=== PATIENT | female | born 1970 | race Asian ===

== ENCOUNTER 2018-02-21 12:34 | Observation (INO) | payer OTHER ==
--- NOTE | 2018-02-21 13:07 | EDPHY ---
H & P Time Seen by Provider: 02/21/18 12:50 HPI/ROS: Chief complaint. Chest pain HPI. Patient is 48-year-old female presents emergency department with complaint of left anterior chest pain that started at 8:30 a.m. This morning. She was getting ready for the day at onset. She describes it as pressure and radiates to left arm and back. Slight nausea. No shortness of breath. No fever cough. Her discomfort is worse with exertion but not deep breathing or movement. No fever cough. No unusual leg pain or swelling. No known history of heart or lung problems. No similar symptoms previously ROS 10 systems were reviewed and negative with the exception of the elements mentioned in the history of present illness Past Medical/Surgical History: Tubal ligation, IBS, anxiety, UTI, tachycardia with Family history shows no cardiac problems and siblings or parents. Uncle with heart problems Social History: , nonsmoker, no alcohol Smoking Status: Former smoker Physical Exam: General Appearance: Alert well-developed female mild distress vital signs are stable Eyes: Pupils equal and round no pallor or injection. ENT, Mouth: Mucous membranes are moist. Respiratory: There are no retractions, lungs are clear to auscultation. Cardiovascular: Regular rate and rhythm. Gastrointestinal: Abdomen is soft and nontender, no masses, bowel sounds normal. Neurological: Awake and alert, sensory and motor exams grossly normal. Skin: Warm and dry, no rashes. Musculoskeletal: Neck is supple nontender. Extremities symmetrical, full range of motion. Psychiatric: Patient is oriented X 3, there is no agitation. Constitutional: Initial Vital Signs Temperature (C) 36.7 C 02/21/18 12:39 Heart Rate 93 02/21/18 12:39 Respiratory Rate 18 02/21/18 12:39 Blood Pressure 130/89 H 02/21/18 12:39 O2 Sat (%) 95 02/21/18 12:39 O2 Delivery Mode Room Air Allergies/Adverse Reactions: amoxicillin trihydrate [From Augmentin] Allergy (Unknown, Verified 02/21/18 12: 38) cephalexin monohydrate [From Keflex] Allergy (Verified 07/03/15 11:38) potassium clavulanate [From Augmentin] Allergy (Verified 07/03/15 11:38) Home Medications: Medication Instructions Recorded Zolpidem Tartrate [Ambien 5MG (*)] 5 mg PO HS 02/21/18 buPROPion [Wellbutrin 75mg (*)] 75 mg PO 02/21/18 Medical Decision Making - Diagnostics EKG Interpretation: EKG interpreted by me shows normal sinus rhythm normal interval. Left axis deviation. QRS otherwise normal. T-wave inversion or flattening in anterior the leads. No significant ST elevation or depression. Rate is 93 No previous EKGs for comparison Imaging Results: Imaging Impressions Chest X-Ray 02/21/18 13:06 Impression: Clear lungs. Negative portable chest. Chest/Thorax CTA 02/21/18 13:45 Impression: 1. No acute central or segmental pulmonary embolus. 2. There is a 1.8 mm right apical nodule, likely benign, but if patient has increased risk of lung malignancy, would consider 12 month follow-up CT. Findings and recommendations discussed with ALEX GARZON at 1419 hour, 2017. Procedures: IV normal saline, monitor ED Course/Re-evaluation: Re-evaluation at 1:45 p.m. Patient is stable. She continues to have left anterior chest discomfort. Patient and and I discussed laboratory EKG chest x-ray evaluation. We discussed elevated D-dimer and recommendation for chest CT. She expresses understanding and agreement Patient is given a L of normal saline and nitroglycerin sublingually No change in discomfort with the nitroglycerin Patient, her , and I discussed treatment plan including recommendation for admission. They expressed understanding and agreement I consulted discussed the case with Dr. Betts, hospitalist, who agrees to the admission Differential Diagnosis: Heart score--history-highly suspicious-2, EKG nonspecific repolarization disturbance -1, age-1, risk factors 0, troponin 0. Total-4 Patient has no significant risk factors but tells a suspicious story. EKG shows the T-wave changes anterior lateral leads without previous EKG for comparison. - Data Points Laboratory Results: Laboratory Results 02/21/18 12:45 02/21/18 12:45 02/21/18 02/21/18 02/21/18 12:58 12:45 12:45 WBC RBC Hgb Hct MCV MCH MCHC RDW Plt Count MPV Neut % (Auto) Lymph % (Auto) [place] % (Auto) Eos % (Auto) Baso % (Auto) Nucleat RBC Rel Count Absolute Neuts (auto) Absolute Lymphs (auto) Absolute Monos (auto) Absolute Eos (auto) Absolute Basos (auto) Absolute Nucleated RBC Immature Gran % Immature Gran # D-Dimer 0.78 ug/mLFEU H ug/mLFEU (0.00-0.50) Sodium 137 mEq/L mEq/L (135-145) Potassium 4.4 mEq/L mEq/L (3.5-5.2) Chloride 104 mEq/L mEq/L (97-110) Carbon Dioxide 22 mEq/l mEq/l (22-31) Anion Gap 11 mEq/L mEq/L (6-14) BUN 18 mg/dL mg/dL (7-23) Creatinine 0.7 mg/dL mg/dL (0.6-1.0) Estimated GFR > 60 Glucose 116 mg/dL H mg/dL (70-100) Calcium 9.1 mg/dL mg/dL (8.5-10.4) POC Troponin I 0.01 ng/mL ng/mL (0.00-0.08) 02/21/18 12:45 WBC 10.68 10^3/uL H 10^3/uL (3.80-9.50) RBC 4.40 10^6/uL 10^6/uL (4.18-5.33) Hgb 13.8 g/dL g/dL (12.6-16.3) Hct 39.2 % % (38.0-47.0) MCV 89.1 fL fL (81.5-99.8) MCH 31.4 pg pg (27.9-34.1) MCHC 35.2 g/dL g/dL (32.4-36.7) RDW 11.9 % % (11.5-15.2) Plt Count 366 10^3/uL 10^3/uL (150-400) MPV 8.8 fL fL (8.7-11.7) Neut % (Auto) 61.0 % % (39.3-74.2) Lymph % (Auto) 31.1 % % (15.0-45.0) [place] % (Auto) 4.8 % % (4.5-13.0) Eos % (Auto) 2.0 % % (0.6-7.6) Baso % (Auto) 0.8 % % (0.3-1.7) Nucleat RBC Rel Count 0.0 % % (0.0-0.2) Absolute Neuts (auto) 6.52 10^3/uL H 10^3/uL (1.70-6.50) Absolute Lymphs (auto) 3.32 10^3/uL H 10^3/uL (1.00-3.00) Absolute Monos (auto) 0.51 10^3/uL 10^3/uL (0.30-0.80) Absolute Eos (auto) 0.21 10^3/uL 10^3/uL (0.03-0.40) Absolute Basos (auto) 0.09 10^3/uL 10^3/uL (0.02-0.10) Absolute Nucleated RBC 0.00 10^3/uL 10^3/uL (0-0.01) Immature Gran % 0.3 % % (0.0-1.1) Immature Gran # 0.03 10^3/uL 10^3/uL (0.00-0.10) D-Dimer Sodium Potassium Chloride Carbon Dioxide Anion Gap BUN Creatinine Estimated GFR Glucose Calcium POC Troponin I Medications Given: Nitroglycerin (Nitrostat) 0.4 mg SL Q5M PRN PRN Reason: Chest Pain Last Admin: 02/21/18 14:14 Dose: 0.4 mg Discontinued Medications Sodium Chloride (Ns) 1,000 mls @ 0 mls/hr IV EDNOW ONE; Wide Open PRN Reason: Protocol Stop: 02/21/18 13:51 Last Admin: 02/21/18 14:14 Dose: 1,000 mls Point of Care Test Results: Chemistry 02/21/18 12:58 POC Troponin I 0.01 ng/mL ng/mL (0.00-0.08) Departure - Departure Disposition: [facility] Inpatient Acute Clinical Impression: Chest pain Qualifiers: Chest pain type: unspecified Qualified Code(s): R07.9 - Chest pain, unspecified Condition: Good Referrals: Mariaelena Chandra MD [Primary Care Provider] - As per Instructions
[2018-02-21 13:12] LABS: PLATELET COUNT 366 10^3/uL (150-400)
--- NOTE | 2018-02-21 13:17 | CPEKG ---
Test Reason : OPEN Blood Pressure : / mmHG Vent. Rate : 093 BPM Atrial Rate : 093 BPM P-R Int : 171 ms QRS Dur : 083 ms QT Int : 366 ms P-R-T Axes : 023 -02 019 degrees QTc Int : 456 ms Sinus rhythm Low voltage, precordial leads Borderline T abnormalities, anterior leads Confirmed by Micheal Cooper ([id number]) on 02/21/2018 1:16:19 PM Referred By: Confirmed By:Micheal Cooper
[2018-02-21] MEDS ORDERED: NS 1,000 ML IV ONE (13:50)
[2018-02-21] MEDS ORDERED: IOPAMIDOL (ISOVUE 370) 100 ML BTL IV ONE (13:53)
[2018-02-21] MEDS: NITROGLYCERIN 0.4 MG BTL SL PRN ×3 (14:14→16:34)
[2018-02-21] MEDS ORDERED: ONDANSETRON DISINTEGRATING 4 MG TAB PO PRN (15:11)
[2018-02-21] MEDS ORDERED: oxyCODONE IR 5 MG TAB PO PRN (15:11)
[2018-02-21] MEDS ORDERED: ACETAMINOPHEN 325 MG TAB PO PRN (15:11)
[2018-02-21] MEDS ORDERED: ONDANSETRON 4 MG/2 ML VIAL IVP PRN (15:11)
--- NOTE | 2018-02-21 16:01 | PDGENHP ---
History and Physical - Chief Complaint Chest pain - History of Present Illness 48 y/o female presents with persistent left sided anterior chest pain that radiates to left arm and posterior scapula. Onset was this morning around 8: 30am when she was getting ready for the day. This is the first time she has experienced chest pain persistence. She admits that she has experienced similar chest pain but it quickly resolves on its own. Nothing seems to alleviate her chest pain and activity ( i.e. 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 Rates the pain 5/10. She reports her father needed a stent placed in the past and has hyperlipidemia. Denies SONG, vision changes, nausea, vomiting or SOB. EKG reveals T wave flattening. She received one dose of nitroglycerin in the ED with no resolution of her pain. She is being admitted for further diagnostic work-up and monitoring. Past Medical/Surgical History 1. IBS 2. Anxiety 3. UTIs (last one was September 2017) 4. Reflux (takes Zantac) 5. Tachycardia with Social 1. , lives in [place] 2. 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 Former smoker, denies current tobacco use. Drinks 1-2 times per week and 2- 4 wine glasses per episode. Smokes cannabis 4x/year. 4. Recently returned from vacation in [place]. Currently stressed at work and is an "emotional eater" consisting of ice cream and cheese. Vital Signs 115/85 88 HR 16 Respirations 36.7c 93% RA History Information - Allergies/Home Medication List Allergies/Adverse Reactions: amoxicillin trihydrate [From Augmentin] Allergy (Unknown, Verified 02/21/18 12: 38) cephalexin monohydrate [From Keflex] Allergy (Verified 07/03/15 11:38) potassium clavulanate [From Augmentin] Allergy (Verified 07/03/15 11:38) Home Medications: Bupropion HCl [Wellbutrin Xl] 300 mg PO DAILY 02/21/18 [Last Taken 02/21/18 08: 00] Zolpidem Tartrate 10 mg PO HS 02/21/18 [Last Taken 02/20/18 21:00] I have personally reviewed and updated: family history, medical history, social history, surgical history Past Medical History: See HPI list - Surgical History Additional surgical history: See HPI list - Family History Positive for: CAD, father with history of CAD younger than 55 - Social History Smoking Status: Former smoker Alcohol Use: Occasionally Drug Use: Marijuana Review of Systems Review of Systems: ROS: 10pt was reviewed & negative except for what was stated in HPI & below Constitutional: Reports: no symptoms EENMT: Reports: no symptoms Cardiac: Reports: chest pain Respiratory: Reports: no symptoms Gastrointestinal: Reports: no symptoms Genitourinary: Reports: no symptoms Muscolosketal: Reports: back pain (Left posterior scapula) Skin: Reports: no symptoms Neurological: Reports: anxiety Hematologic/Lymphatic: Reports: no symptoms Immunologic/Allergy: Reports: other (See allergy list) Physical Exam Physical Exam: Lab data and imaging reviewed EKG: see HPI list CXR: no acute processes Chest/Thorax CTA: no PE. Noted apical nodule - if malignancy in history, recommends CT f/u in 12 months. WBC: 10.68 RBC: 4.40 Hgb/Hct: 13.8/39.2 D-Dimer: 0.78 Trop: 0.01 Temp Pulse Resp BP Pulse Ox 36.7 C 82 18 122/105 H 95 02/21/18 12:39 02/21/18 15:50 02/21/18 15:50 02/21/18 15:50 02/21/18 15:50 O2 (L/minute) 2 Constitutional: no apparent distress, appears nourished, not in pain Eyes: PERRL, anicteric sclera, EOMI Ears, Nose, Mouth, Throat: moist mucous membranes, hearing normal, ears appear normal, no oral mucosal ulcers Cardiovascular: regular rate and rhythym, no murmur, rub, or gallop, No edema Peripheral Pulses: 2+: dorsalis-pedis (R) (Radial 2+), dorsalis-pedis (L) ( Radial 2+) Respiratory: no respiratory distress, no rales or rhonchi, clear to auscultation Gastrointestinal: normoactive bowel sounds, soft, non-tender abdomen, no palpable masses Genitourinary: no bladder fullness, no bladder tenderness Skin: warm, normal color, no rashes or abrasions, no fluctuance, no induration, No mottled Musculoskeletal: full muscle strength, no muscle tenderness, normal joint ROM, no joint effusions Neurologic: AAOx3, sensation intact bilaterally, CN II-XII Intact Psychiatric: interacting appropriately, not anxious, not encephalopathic, thought process linear Lymph, Heme, Immunologic: no cervical LAD, no supraclavicular LAD Lab Data & Imaging Review 02/21/18 12:45 02/21/18 12:45 WBC 10.68 10^3/uL (3.80-9.50) H 02/21/18 12:45 RBC 4.40 10^6/uL (4.18-5.33) 02/21/18 12:45 Hgb 13.8 g/dL (12.6-16.3) 02/21/18 12:45 Hct 39.2 % (38.0-47.0) 02/21/18 12:45 MCV 89.1 fL (81.5-99.8) 02/21/18 12:45 MCH 31.4 pg (27.9-34.1) 02/21/18 12:45 MCHC 35.2 g/dL (32.4-36.7) 02/21/18 12:45 RDW 11.9 % (11.5-15.2) 02/21/18 12:45 Plt Count 366 10^3/uL (150-400) 02/21/18 12:45 MPV 8.8 fL (8.7-11.7) 02/21/18 12:45 Neut % (Auto) 61.0 % (39.3-74.2) 02/21/18 12:45 Lymph % (Auto) 31.1 % (15.0-45.0) 02/21/18 12:45 [place] % (Auto) 4.8 % (4.5-13.0) 02/21/18 12:45 Eos % (Auto) 2.0 % (0.6-7.6) 02/21/18 12:45 Baso % (Auto) 0.8 % (0.3-1.7) 02/21/18 12:45 Nucleat RBC Rel Count 0.0 % (0.0-0.2) 02/21/18 12:45 Absolute Neuts (auto) 6.52 10^3/uL (1.70-6.50) H 02/21/18 12:45 Absolute Lymphs (auto) 3.32 10^3/uL (1.00-3.00) H 02/21/18 12:45 Absolute Monos (auto) 0.51 10^3/uL (0.30-0.80) 02/21/18 12:45 Absolute Eos (auto) 0.21 10^3/uL (0.03-0.40) 02/21/18 12:45 Absolute Basos (auto) 0.09 10^3/uL (0.02-0.10) 02/21/18 12:45 Absolute Nucleated RBC 0.00 10^3/uL (0-0.01) 02/21/18 12:45 Immature Gran % 0.3 % (0.0-1.1) 02/21/18 12:45 Immature Gran # 0.03 10^3/uL (0.00-0.10) 02/21/18 12:45 D-Dimer 0.78 ug/mLFEU (0.00-0.50) H 02/21/18 12:45 Sodium 137 mEq/L (135-145) 02/21/18 12:45 Potassium 4.4 mEq/L (3.5-5.2) 02/21/18 12:45 Chloride 104 mEq/L (97-110) 02/21/18 12:45 Carbon Dioxide 22 mEq/l (22-31) 02/21/18 12:45 Anion Gap 11 mEq/L (6-14) 02/21/18 12:45 BUN 18 mg/dL (7-23) 02/21/18 12:45 Creatinine 0.7 mg/dL (0.6-1.0) 02/21/18 12:45 Estimated GFR > 60 02/21/18 12:45 Glucose 116 mg/dL (70-100) H 02/21/18 12:45 Calcium 9.1 mg/dL (8.5-10.4) 02/21/18 12:45 POC Troponin I 0.01 ng/mL (0.00-0.08) 02/21/18 12:58 Assessment & Plan Plan: 48 y/o female presents with acute chest pain that radiates to her left arm and left sided scapula. Heart score is 4. Concern for ACS. Pain unrelieved by nitro and morphine. -Initiated chest pain protocol including: Cycle trops, EKGs -CBC/CMP tomorrow -Chemical stress test tomorrow; unable for exercise stress test d/t "very bad bunions" on both of her feet -Lipid panel tomorrow; considering starting atorvastatin tomorrow -Cont tele/pulse ox -Apical pulmonary nodule - educated pt to f/u in 12 months outpatient for repeat CT -Anxiety: may continue wellbutrin -May continue Ambien Diet: Regular VTE ppx: SCDs Code: Full Dispo: Admit to obs
[2018-02-21] MEDS ORDERED: ZOLPIDEM TARTRATE 5 MG TAB PO SCH (21:00)
--- NOTE | 2018-02-21 21:32 | GHP ---
DATE OF ADMISSION: 02/21/2018 CHIEF COMPLAINT: Chest pain. HISTORY OF PRESENT ILLNESS: Ms. Phelps is a pleasant, 48-year-old female with a past medical history of depression who presented to the [facility] Room with left-sided chest pain with radiation to her back. She was administered nitroglycerin in the emergency room without any ma karla improvement of her symptoms. Her initial troponin was negative. There was concern about her ECG showing T-wave flattening in the anterior leads, but there was no baseline available for comparison. Her D-dimer was mildly elevated at 0.78, so she had a CT angiography of her chest performed, which did not show any evidence of a pulmonary embolism. She is a nonsmoker. Her father did have coronary artery disease under the age of 55. For past medical history, past surgical history, medications, a llergies, family history, social history, and review of systems, please refer to admission H and P, a lso dictated by Mattie Branch. PHYSICAL EXAM: VITAL SIGNS: The patient was afebrile. Blood pressure 115/85, heart rate 82, respir ations 16, saturating 93% on room air. GENERAL: Patient appears comfortable. She is awake, alert, conversant, in no acute distress. She does not appear anxious. HEENT: Extraocular movements intact . No scleral icterus. NECK: Supple. No adenopathy. No thyroid enlargement noted. CHEST: Clear to auscultation with normal respiratory effort. HEART: Regular rate and rhythm. No murmurs appreci ated. ABDOMEN: Soft, nontender, nondistended. EXTREMITIES: No significant pitting edema or calf p ain. NEUROLOGIC: Cranial nerves 2-12 intact with 5/5 strength in extremities. LABS: White blood cell count is 10, hemoglobin 13, platelets 366. Sodium 137, potassium 4.4, chlori de 104, bicarb 22, BUN 18, creatinine 0.7, glucose 116. D-dimer 0.78. Troponin 0.01. IMAGING: Chest x-ray had no acute findings. CT of the chest without any evidence of pulmonary embol ism. ASSESSMENT AND PLAN: Chest pain has been nonresponsive to nitroglycerin and no significant relief wi th morphine. Her nurse did mention to me that when she was changing positions, it seemed to exacerba te the pain, so possibly a musculoskeletal component to it. Nonetheless, the plan overnight will be to trend troponins and attempt exercise stress testing in the morning. /[id number]/MODL
[2018-02-21] MEDS: HYDROmorphONE/DILAUDID 1 MG/ML INJ IVP PRN (23:55)
[2018-02-22 04:37] LABS: PLATELET COUNT 325 10^3/uL (150-400)
[2018-02-22 07:25] VITALS: BP 111/74
[2018-02-22] MEDS ORDERED: buPROPion XL 150 MG TAB PO SCH (09:00)
[2018-02-22] MEDS: HYDROmorphONE/DILAUDID 1 MG/ML INJ IVP PRN (10:22)
[2018-02-22] MEDS ORDERED: REGADENOSON 0.4 MG/5 ML SYR IVP ONE (13:19)
--- NOTE | 2018-02-22 14:54 | PDDCSUM ---
Discharge Summary Discharge Summary: Date of Admission: 02/21/2018 Date of Discharge: 02/22/2018 Consults: N/A Procedures: MPS F/U: PCP Hospital Course: Kathleen Phelps is a 48 yo F who presents to [facility] for L sided chest pain, described as pressure like, radiating down L arm. She was admitted overnight for observation with serial Troponins which were within normal limits and EKG that showed nonspecific T wave changes. Given patient's symptoms, nonspecific EKG changes, and family hx of heart disease, MPS was performed which was negative for ischemic changes. Of note, patient had CTA performed due to elevated D-Dimer on admission which showed a 1.8 mm R apical lung nodule that should be followed with repeat CT in 12 months. Time spent on discharge was >35 minutes with >50% of time spent on patient education and counseling.
--- NOTE | 2018-02-22 15:35 | ASDISCHSUM ---
Discharge Information Plan Status:Home with No Needs Medically Cleared to Leave:02/21/2018 Discharge Date:02/21/2018 CM D/C Disposition:Home, Routine, Self-Care ADT D/C Disposition: Projected Discharge Date:02/21/2018 Transportation at D/C:Family Discharge Delay Reason: Follow-Up Date:02/21/2018 Discharge Slot: Final Diagnosis: Placement Information Patient Contact Information Contact Name:ANIKET Relationship: Address:[address] [place] [address] City:[place] Alternate Phone: State/Zip Code:[place] [address] Email: Financial Information Financial Class:BC Primary [facility] Desc[facility] Primary Plan Number:[id number] Secondary Plan Desc: Secondary Plan Number: Assessment Information LACE LACE Length of stay for Answers: 1 day current admission Acuity / Level of Answers: No Care: Did the patient have an inpatient admission? Comorbidities - select Answers: Other Notes: IBS, UTIs, reflux all that apply # of Emergency department Answers: 1-2 visits in the last 6 months Social determinants Answers: History of substance abuse (ETOH, street drugs, prescription drugs, etc.) Mental health diagnosis (anxiety, depression, pers onality disorders, etc.) Score: 9 Date Signed: 02/22/2018 03:35 PM Electronically Signed By:Lisette Jules RN Intervention Information
--- NOTE | 2018-02-23 01:26 | CPR ---
DATE OF PROCEDURE: 02/22/2018 INDICATIONS: The patient is 48 years old. She presents to the hospital with symptoms of left-sided chest discomfort with some features that suggest ischemia. Thus far she has ruled out for myocardial infarction. PROCEDURE: Lexiscan stress test. TECHNIQUE: Following informed consent and in the fasting state, the patient was administered Lexisca n per protocol. The baseline electrocardiogram was noted to demonstrate normal sinus rhythm. The pa tient was monitored continuously during the process with blood pressures taken every minute. Baselin e heart rate was 71 with a blood pressure 122/80 and saturations 99%. During the time frame, the pat ient remained hemodynamically stable. At the end of the 4-minute protocol, the patient's heart rate was 95 with a blood pressure 122/84, room air saturation 99%. There were no electrocardiographic karri nges. Myocardial perfusion imaging will be dictated separately. /[id number]/MODL
== END 2018-02-22 15:48 | disposition home or self-care (01) ==
LOC: INTOOBSV 14:53 → F2W 18:28
PROVIDERS: ADMIT Internal Medicine; ATTEND Internal Medicine
PROC: C22G1ZZ Tomographic (Tomo) Nuclear Medicine Imaging of Myocardium using Technetium 99m (Tc-99m) (ICD-10-PCS; principal; 2018-02-21)
DX: R07.9 Chest pain, unspecified (principal); R79.89 Other specified abnormal findings of blood chemistry; R91.1 Solitary pulmonary nodule; E86.9 Volume depletion, unspecified; F41.9 Anxiety disorder, unspecified; F32.9 Major depressive disorder, single episode, unspecified; F60.9 Personality disorder, unspecified; K58.9 Irritable bowel syndrome, unspecified; K21.9 Gastro-esophageal reflux disease without esophagitis; Z82.49 Family history of ischemic heart disease and other diseases of the circulatory system; Z88.0 Allergy status to penicillin
CPT/HCPCS: 71045; 71275; 78451; 93005; 93017; 96374; 96375; 96376; 99285; A9500; G0378; 84484-ER; J1170; J2270; J2785; Q9967